=== PATIENT | female | born 1975 | race Two or more races ===

== ENCOUNTER 2017-12-09 13:11 | Emergency (ER) | payer OTHER ==
[~2017-12-09] VITALS: Ht 160 cm; Wt 58.5 kg
[~2017-12-09 13:11] MED LIST: ATENOLOL25 MG; BUDEO.25 IH; CARDIZEM30 MG; CORGARD20 M1; DICLOFENAC SODI50 MG PO; DOLOGESIC 500-1 EACH PO; MOTRIN800 MG PO; NADOLOL20 MG; TRANXENE T-TA3.75 MG; TRANXENE T-TAB7.5 MG; XANAX0.25 MG; XOPENEX0.63 MG/3 IH; ZEBETA5 MG PO; ZOLOFT25 MG; ZYNCOF 20-400120 ML PO
== END 2017-12-09 16:06 | disposition home or self-care (01) ==
LOC: ER 13:11
DX: R42 Dizziness and giddiness (principal)

== ENCOUNTER 2018-10-13 12:16 | Emergency (ER) | payer OTHER ==
[~2018-10-13] VITALS: Ht 160 cm; Wt 57.6 kg
[2018-10-13] MEDS ORDERED: ADVIL100 MG PO (14:38)
== END 2018-10-13 15:03 | disposition home or self-care (01) ==
LOC: ER 12:16
DX: S93.401A Sprain of unspecified ligament of right ankle, initial encounter (principal); X50.3XXA Overexertion from repetitive movements, initial encounter; Y93.89 Activity, other specified; Y92.89 Other specified places as the place of occurrence of the external cause; Y99.8 Other external cause status

== ENCOUNTER 2025-02-20 15:29 | Emergency (ER) | payer OTHER ==
[~2025-02-20] VITALS: Ht 160 cm; Wt 69.9 kg
[~2025-02-20 15:29] MED LIST changes: +ADVIL100 MG PO
[2025-02-20 15:34] VITALS: BP 117/79; O2SAT 100
[2025-02-20] MEDS ORDERED: METHYLPREDNISOLONE SOD SUCC 125 MG VIAL IV STA (16:43)
[2025-02-20] MEDS ORDERED: FAMOtidine 10 MG/ML (4ML VIAL) IV STA (16:43)
[2025-02-20] MEDS ORDERED: DIPHENHYDRAMINE HCL 50 MG/ML VIAL 1ML IV STA (16:43)
[2025-02-20] MEDS ORDERED: METHYLPREDNISOLONE SOD SUCC 125 MG VIAL ONE (16:51)
[2025-02-20] MEDS ORDERED: FAMOTIDINE/PF 20 MG/2 ML VIAL ONE (16:51)
[2025-02-20] MEDS ORDERED: DIPHENHYDRAMINE HCL 50 MG/ML VIAL 1ML ONE (16:51)
== END 2025-02-20 18:20 | disposition home or self-care (01) ==
LOC: ER 15:29
DX: T78.40XA Allergy, unspecified, initial encounter (principal); Z88.8 Allergy status to other drugs, medicaments and biological substances

== ENCOUNTER 2025-02-22 00:30 | Emergency (ER) | payer OTHER ==
[~2025-02-22] VITALS: Ht 160 cm; Wt 69.9 kg
[2025-02-22] MEDS ORDERED: MECLIZINE HCL 25 MG TABLET PO STA (02:18)
[2025-02-22] MEDS ORDERED: MECLIZINE HCL 25 MG TABLET PO ONE (02:36)
[2025-02-22 05:09] LABS: BUN CREA RATIO 37.0 (7.0-25.0); CREATININE SERUM 0.52 mg/dL (0.55-1.02); GFR 125.86; GLUCOSE FASTING 88.0 mg/dL (65-100); OSMOLALITY SERUM 279.0 MOSM/KG (275-295)
[2025-02-22] MEDS ORDERED: DIPHENHYDRAMINE HCL 12.5 MG/5 ML BLIST.PACK PO STA (05:22)
[2025-02-22] MEDS ORDERED: MEDROL8 MG PO (05:27)
[2025-02-22] MEDS ORDERED: FAMOTIDINE40 MG PO ×2 (05:27)
[2025-02-22] MEDS ORDERED: BENADRYL25 MG PO (05:27)
== END 2025-02-22 05:51 ==
LOC: ER 00:31
PROVIDERS: General Practice
DX: R42 Dizziness and giddiness (principal); Z88.8 Allergy status to other drugs, medicaments and biological substances